=== PATIENT | male | born 1975 | race Caucasian/White ===

== ENCOUNTER 2018-09-28 00:23 | Emergency (ER) | payer MEDICAID, OTHER ==
[~2018-09-28] VITALS: Ht 177.8 cm; Wt 120.0 kg
--- NOTE | 2018-09-28 00:48 | NUR ---
PT HERE FOR LEFT AND EPIGASTRIC PAIN. PAIN STARTED LAST NIGHT AT 1900. PT HAS BEEN UNDERSTRESS. PT HAS HAD SIMILAR PAIN IN THE PAST BUT IT USUALLY RESOLVES WITH IBUPROFEN. HR ELEVATED. PT DENIES ANY MED HX. PT RESTIN LAB AT BEDSIDE. CALL LIGHT IN REACH
[2018-09-28] MEDS ORDERED: ACETAMINOPHEN 500 MG TABLET ONE (00:59)
[2018-09-28] MEDS ORDERED: ACETAMINOPHEN 500 MG TABLET PO ONE (01:00)
[2018-09-28 01:01] LABS: BASOPHILS # (AUTO) 0.03 x10^3/uL (0-0.1); BASOPHILS % (AUTO) 0 % (0-1); EOSINOPHILS # (AUTO) 0.06 x10^3/uL (0-0.4); EOSINOPHILS % (AUTO) 1 % (1-7); LYMPHOCYTES # (AUTO) 1.85 x10^3/uL (1-3.4); LYMPHOCYTES % (AUTO) 20 % (22-44); MD NO; MEAN CORPUSCULAR HEMOGLOBIN 31.4 pg (27.5-34.5); MEAN CORPUSCULAR HGB CONC 34.8 g/dL (33.2-36.2); MEAN CORPUSCULAR VOLUME 90.2 fL (81-97); MEAN PLATELET VOLUME 9.2 fL (7.4-10.4); MONOCYTES # (AUTO) 0.56 x10^3/uL (0.2-0.8); MONOCYTES % (AUTO) 6 % (2-9); NEUTROPHILS # (AUTO) 6.92 x10^3/uL (1.8-6.8); NEUTROPHILS % (AUTO) 74 % (42-75); PLATELET COUNT 256 x10^3/uL (130-400); RED BLOOD COUNT 5.45 x10^6/uL (4.38-5.82); RED CELL DISTRIBUTION WIDTH 13.6 % (9.4-14.8)
[2018-09-28 01:09] LABS: ALBUMIN 4.2 g/dL (3.4-5.0); ANION GAP 7 mmol/L (5-15); CHLORIDE 105 mmol/L (98-107); CREATININE 1.04 mg/dL (0.7-1.3)
[2018-09-28 01:13] LABS: FREE T4 (FREE THYROXINE) 1.17 ng/dL (0.76-1.46); TROPONIN I < 0.015 ng/mL (0.000-0.045)
--- NOTE | 2018-09-28 01:24 | NUR ---
TASK RN: PT SITTING UP IN [place], HORACE NOTED. PT REPORTS 2/10 PAIN AND DENIES NEED FOR FURTHER PAIN MEDICATIONS. BP/SPO2/ECG MONITOR IN PLACE. SINUS TACH ON MONITOR, HR 118
--- NOTE | 2018-09-28 01:45 | NUR ---
Patient given discharge instructions and they have confirmed that they understand the instructions. Patient ambulatory with steady gait.
[2018-09-28 01:46] VITALS: BP 152/81
== END 2018-09-28 01:48 | disposition home or self-care (01) ==
LOC: ED 01:20
DX: R00.0 Tachycardia, unspecified (principal); R00.2 Palpitations; E78.5 Hyperlipidemia, unspecified; F17.200 Nicotine dependence, unspecified, uncomplicated
CPT/HCPCS: 36415; 71045; 80048; 82040; 84439; 84443; 84484; 85025; 85379; 93005; 99284

== ENCOUNTER 2019-08-24 16:18 | Emergency (ER) | payer OTHER ==
[~2019-08-24] VITALS: Ht 177.8 cm; Wt 124.8 kg
--- NOTE | 2019-08-24 16:31 | NUR ---
Pt ambulates from triage to room with steady gait and balance. NADN. No obvious defecits observed.
--- NOTE | 2019-08-24 16:55 | NUR ---
Pt resting on gurney connected to equipment monitor phototypesetting, NIBP cuff, and continous pulse ox monitor. NADN. Pt states 1/10 intermittent "bruise like feeling" sternal chest pain. Spouse at bedside. Call light within reach. No needs expressed at this time.
[2019-08-24] MEDS ORDERED: SODIUM CHLORIDE FLUSH 10ML SYR IVF ONE (17:30)
[2019-08-24 17:53] LABS: BASOPHILS # (AUTO) 0.04 x10^3/uL (0-0.1); BASOPHILS % (AUTO) 1 % (0-1); EOSINOPHILS # (AUTO) 0.13 x10^3/uL (0-0.4); EOSINOPHILS % (AUTO) 2 % (1-7); LYMPHOCYTES # (AUTO) 2.35 x10^3/uL (1-3.4); LYMPHOCYTES % (AUTO) 40 % (22-44); MD NO; MEAN CORPUSCULAR HEMOGLOBIN 31.3 pg (27.5-34.5); MEAN CORPUSCULAR VOLUME 92.3 fL (81-97); MEAN PLATELET VOLUME 8.6 fL (7.4-10.4); MONOCYTES # (AUTO) 0.38 x10^3/uL (0.2-0.8); MONOCYTES % (AUTO) 6 % (2-9); NEUTROPHILS # (AUTO) 2.98 x10^3/uL (1.8-6.8); NEUTROPHILS % (AUTO) 51 % (42-75); PLATELET COUNT 208 x10^3/uL (130-400); RED BLOOD COUNT 5.59 x10^6/uL (4.38-5.82); RED CELL DISTRIBUTION WIDTH 14.1 % (9.4-14.8)
--- NOTE | 2019-08-24 18:29 | NUR ---
Pt resting on gurney connected to traffic monitor specialist, nibp cuff, and continous pulse ox. Pt waiting for pending lab results. Pt denies any pain at this time. NADN. Pt is NSR on monitor. No needs expressed at this time.
--- NOTE | 2019-08-24 18:47 | NUR ---
REPORT RECEIVED FROM KIRILL MOSQUEDA.
--- NOTE | 2019-08-24 19:01 | NUR ---
Provided report to KIRILL Warren. All questions answered. KIRILL Warren to assume care of pt at this time.
[2019-08-24 19:06] LABS: ALBUMIN 4.1 g/dL (3.4-5.0); CALCIUM 8.8 mg/dL (8.5-10.1)
[2019-08-24 19:08] LABS: CREATININE 0.91 mg/dL (0.7-1.3); TOTAL PROTEIN 7.1 g/dL (6.4-8.2)
[2019-08-24 19:09] VITALS: BP 135/78
[2019-08-24 19:09] LABS: TROPONIN I < 0.015 ng/mL (0.000-0.045)
--- NOTE | 2019-08-24 19:09 | NUR ---
PT RESTING ON GURNEY, CALL LIGHT WITHIN REACH, FAMILY AT BEDSIDE.
[2019-08-24 19:13] LABS: ANION GAP 8 mmol/L (5-15); CHLORIDE 110 mmol/L (98-107)
[2019-08-24 19:25] LABS: ALANINE AMINOTRANSFERASE 74 U/L (12-78); ALKALINE PHOSPHATASE 73 U/L (45-117); BILIRUBIN,TOTAL 0.3 mg/dL (0.2-1.0)
--- NOTE | 2019-08-24 19:26 | NUR ---
ALL RESULTS BACK AT THIS TIME, CHART UP FOR RECHECK.
--- NOTE | 2019-08-24 19:39 | NUR ---
AT BEDSIDE FOR REASSESSMENT.
--- NOTE | 2019-08-24 20:09 | NUR ---
Patient/Caregiver given discharge instructions and they have confirmed that they understand the instructions. Patient ambulatory with steady gait.
== END 2019-08-24 20:16 | disposition home or self-care (01) ==
LOC: ED 18:25
DX: R07.89 Other chest pain (principal); F17.200 Nicotine dependence, unspecified, uncomplicated; E78.5 Hyperlipidemia, unspecified
CPT/HCPCS: 36415; 71045; 80053; 82962; 84484; 85025; 85379; 93005; 99284